=== PATIENT | female | born 1990 | race Hispanic/Latino ===

== ENCOUNTER → 2024-12-14 | Outpatient (CLI) | payer OTHER ==
--- NOTE | 2024-12-15 11:01 | HMCIMG ---
EXAMINATION: COMPLETE TRANSVAGINAL ULTRASOUND OF PELVIS. CLINICAL HISTORY: Pelvic and perianal pain. COMPARISON: None provided. TECHNIQUE: Multiple real-time grayscale images of the pelvis were obtained. In addition, color Doppler is medically necessary to perform to assess for vascularity and blood flow. FINDINGS: The uterus is anteverted, normal in caliber and measures 7.3 x 4.4 x 4.9 cm in the craniocaudal, AP, and transverse dimensions respectively. There is an intramural fibroid that measures 0.8 x 0.5 x 0.7 cm in the posterior wall. There is a cyst that measures 0.4 x 0.3 x 0.4 cm in the fundal region. The endometrium measures approximately 0.4 cm. There are Nabothian cysts and calcifications in the cervix. The right ovary measures 6.3 x 2.5 x 4.8 cm. (PSV is 6 cm/s). There is a cyst that measures 3.0 x 1.9 x 3.7 cm with internal echoes and septations. There is bilobed cyst that measures 4.3 x 2.9 x 3.7 cm with internal echoes. The left ovary measures 5.8 x 2.9 x 5.1 cm. (PSV is 8 cm/s). There is a follicular cyst that measures 2.8 x 1.9 x 2.7 cm with internal echoes. There is well defined multi-loculated cystic lesion that measures 7.3 x 6.3 x 7.0 cm in the left adnexa with internal echoes and peripheral vascularity. There is trace free fluid in the cul-de-sac. IMPRESSION: Uterine fibroid. Myometrial cyst. Nabothian cysts and calcifications in the cervix. Right ovarian complex cysts. Complex cyst in the left adnexa. Left ovarian hemorrhagic follicular cyst. Trace free fluid in the cul-de-sac. Recommend MRI pelvis with contrast. /[place]
== END | disposition home or self-care (01) ==
LOC: RAH 12:59
PROVIDERS: ATTEND Family Medicine
DX: D25.1 Intramural leiomyoma of uterus (principal); N83.202 Unspecified ovarian cyst, left side; N85.4 Malposition of uterus; R10.2 Pelvic and perineal pain
CPT/HCPCS: 76830